=== PATIENT | male | born 1945 | race Caucasian/White ===

== ENCOUNTER 2017-06-13 08:11 | Inpatient (IN) | payer MEDICARE, OTHER ==
[2017-06-13] MEDS: ALBUTEROL 0.5% (NEB) 2.5 MG/0.5 ML AMP INH (08:44)
[2017-06-13] MEDS: METHYLPREDNISOLONE 125 MG INJ IV (08:49)
[2017-06-13 09:05] LABS: ADD MAN DIFF? NO
[2017-06-13 09:09] LABS: WHITE BLOOD COUNT 17.3 10^3/ul (4.8-10.8)
[2017-06-13 09:09] LABS: BASOPHILS % 0.2 % (0.0-2.0); HEMATOCRIT 39.5 % (42.0-52.0); HEMOGLOBIN 12.3 g/dl (14.0-18.0); LYMPHOCYTES # 0.7 10^3/ul (0.8-2.9); LYMPHOCYTES % 4.2 % (15.0-51.0); MEAN CORPUSCULAR HEMOGLOBIN 31.1 pg (29.0-33.0); MEAN CORPUSCULAR HGB CONC 31.1 g/dl (32.0-37.0); MEAN CORPUSCULAR VOLUME 99.7 fl (82.0-101.0); MONOCYTE # 1.4 10^3/ul (0.3-0.9); MONOCYTES % 8.3 % (0.0-11.0); NEUTROPHILS % 86.7 % (39.0-77.0); PLATELET COUNT 208 10^3/UL (140-415); RED BLOOD COUNT 3.96 10^6/ul (4.70-6.10); RED CELL DISTRIBUTION WIDTH 14.3 % (11.5-14.5)
[2017-06-13 09:27] LABS: ALANINE AMINOTRANSFERASE 23 IU/L (13-69); ALBUMIN 3.8 g/dl (3.3-4.9); ALBUMIN/GLOBULIN RATIO 0.88; ALKALINE PHOSPHATASE 102 IU/L (42-121); ANION GAP 16 (8-16); ASPARTATE AMINO TRANSFERASE 24 IU/L (15-46); BILIRUBIN,INDIRECT 0.3 mg/dl (0-1.1); BILIRUBIN,TOTAL 0.3 mg/dl (0.2-1.3); BLOOD UREA NITROGEN 65 mg/dl (7-20); CARBON DIOXIDE 32 mmol/L (21-31); CHLORIDE 103 mmol/L (97-110); CREATININE 2.36 mg/dl (0.61-1.24); GLUCOSE 184 mg/dl (70-220); POTASSIUM 5.1 mmol/L (3.5-5.1); SODIUM 146 mmol/L (135-144); TOTAL PROTEIN 8.1 g/dl (6.1-8.1)
[2017-06-13 09:39] LABS: TROPONIN-I 0.025 ng/ml (0.00-0.12)
[2017-06-13 10:04] LABS: B-TYPE NATRIURETIC PEPTIDE 648 PG/ML (0-125)
[2017-06-13] MEDS: DILTIAZEM 50 MG INJ IV (11:00)
[2017-06-13 11:57] LABS: Allen Test ACCEPTAB; Arterial Base Excess -0.7 mmol/L (-3.0-3); Arterial Blood Gas Oxygen Sat 83.8 mmHG (95.0-100.0); Arterial COHb 0.9 % (0.0-3.0); Arterial Fraction of Oxyhgb 82.7 % (93.0-99.0); Arterial HCO3 32.2 mmol/L (22.0-26.0); Arterial MetHb 0.4 % (0.0-1.5); Arterial Total Hemglobin 12.9 g/dl (12.0-18.0); Arterial pCO2 109.6 mmhg (35-45); MODE ROOM AIR; Site Left Radial
[2017-06-13] MEDS: SODIUM CHLORIDE 0.9% 1L BAG IV* (11:57)
[2017-06-13] MEDS: CEFEPIME 1GM/50 ML (PMX) 50 ML IVPB (11:58)
[2017-06-13 12:22] LABS: LACTIC ACID 0.7 mmol/L (0.5-2.0)
[2017-06-13] MEDS: VANCOMYCIN 1 GM (PMX) 250 ML IVPB (12:37)
[2017-06-13] MEDS ORDERED: ACETAMINOPHEN 325 MG TAB PO ×2 (13:00→13:30)
[2017-06-13] MEDS ORDERED: ONDANSETRON 4 MG INJ IV ×2 (13:00→13:30)
[2017-06-13 13:23] LABS: LACTIC ACID 1.8 mmol/L (0.5-2.0)
[2017-06-13] MEDS ORDERED: VANCOMYCIN IV PER PHARMACY XX (13:30)
[2017-06-13] MEDS ORDERED: BISACODYL (EC) 5 MG TAB PO (13:30)
[2017-06-13] MEDS ORDERED: MAGNESIUM HYDROXIDE 30ML CUP PO (13:30)
[2017-06-13] MEDS ORDERED: NACL 0.9% 3 ML SYG IV (13:30)
[2017-06-13] MEDS: LEVALBUTEROL (NEB) 1.25 MG/0.5 ML AMP HHN ×2 (13:33→19:46)
[2017-06-13] MEDS: IPRATROPIUM (NEB) 0.5 MG/2.5 ML AMP HHN ×2 (13:33→19:46)
[2017-06-13] MEDS: PIPER-TAZO 3.375 GM IV (PMX) 100 ML IVPB ×2 (14:37→18:22)
[2017-06-13] MEDS: SOD CHLORIDE 0.9% 1,000 ML IV (14:37)
[2017-06-13] MEDS: METHYLPREDNISOLONE 40 MG INJ IV ×2 (15:05→21:08)
[2017-06-13] MEDS: HEPARIN 5,000 UNIT/0.5 ML VIAL SC ×2 (15:07→22:21)
[2017-06-13 15:41] LABS: Allen Test ACCEPTAB; Arterial Blood Gas Oxygen Sat 84.8 mmHG (95.0-100.0); Arterial COHb 0.5 % (0.0-3.0); Arterial HCO3 27.6 mmol/L (22.0-26.0); Arterial MetHb 0.4 % (0.0-1.5); Arterial Total Hemglobin 12.3 g/dl (12.0-18.0); Arterial pCO2 73.7 mmhg (35-45); Blood Gas IEPAP 20/5; Blood Gas PS 15; MODE MASK - BIPAP; Site Right Radial
[2017-06-13] MEDS: DOCUSATE SODIUM 100 MG CAP PO (16:51)
[2017-06-13] MEDS: VANCOMYCIN 750 MG in DEXTROSE 5% 150 ML IVPB (17:37)
[2017-06-13 18:54] LABS: LACTIC ACID 1.2 mmol/L (0.5-2.0)
[2017-06-13 19:20] LABS: TROPONIN-I 0.016 ng/ml (0.00-0.12)
[2017-06-13] MEDS: BUDESONIDE (NEB) 0.5MG/2ML AMP HHN (19:46)
[2017-06-13] MEDS: ATORVASTATIN 80 MG TAB PO (21:00)
[2017-06-13] MEDS: TAMSULOSIN (SR) 0.4 MG CAP PO (21:09)
[2017-06-13] MEDS: OLANZAPINE (ODT) 5 MG TAB PO (21:10)
[2017-06-13] MEDS: HYDROCODONE/APAP (5/325) TAB PO (21:28)
[2017-06-13] MEDS ORDERED: LORAZEPAM 2 MG INJ (22:53)
[2017-06-13] MEDS: LORAZEPAM 2 MG INJ IV (22:55)
[2017-06-14] MEDS: PIPER-TAZO 3.375 GM IV (PMX) 100 ML IVPB ×4 (00:55→17:02)
[2017-06-14 01:01] LABS: TROPONIN-I 0.021 ng/ml (0.00-0.12)
[2017-06-14] MEDS: LEVALBUTEROL (NEB) 1.25 MG/0.5 ML AMP HHN ×3 (01:12→19:15)
[2017-06-14] MEDS: DOCUSATE SODIUM 100 MG CAP PO ×2 (01:28→16:08)
[2017-06-14] MEDS: LORAZEPAM 2 MG INJ IV (05:42)
[2017-06-14] MEDS: HEPARIN 5,000 UNIT/0.5 ML VIAL SC ×3 (05:53→22:40)
[2017-06-14 06:10] LABS: ADD MAN DIFF? NO
[2017-06-14 06:21] LABS: WHITE BLOOD COUNT 18.6 10^3/ul (4.8-10.8)
[2017-06-14 06:21] LABS: ABNORMAL IP MESSAGE 1; BASOPHILS % 0.2 % (0.0-2.0); HEMATOCRIT 33.8 % (42.0-52.0); HEMOGLOBIN 10.7 g/dl (14.0-18.0); LYMPHOCYTES # 0.3 10^3/ul (0.8-2.9); LYMPHOCYTES % 1.6 % (15.0-51.0); MEAN CORPUSCULAR HGB CONC 31.7 g/dl (32.0-37.0); MEAN PLATELET VOLUME 10.1 fl (7.4-10.4); MONOCYTE # 0.9 10^3/ul (0.3-0.9); MONOCYTES % 4.7 % (0.0-11.0); NEUTROPHIL # 17.3 10^3/ul (1.6-7.5); NEUTROPHILS % 92.9 % (39.0-77.0); PLATELET COUNT 186 10^3/UL (140-415); POSITIVE DIFF @See below; RED BLOOD COUNT 3.45 10^6/ul (4.70-6.10); RED CELL DISTRIBUTION WIDTH 14.3 % (11.5-14.5)
[2017-06-14 06:53] LABS: ALANINE AMINOTRANSFERASE 17 IU/L (13-69); ALBUMIN 2.8 g/dl (3.3-4.9); ALBUMIN/GLOBULIN RATIO 0.82; ALKALINE PHOSPHATASE 78 IU/L (42-121); ANION GAP 15 (8-16); ASPARTATE AMINO TRANSFERASE 29 IU/L (15-46); BILIRUBIN,INDIRECT 0.2 mg/dl (0-1.1); BILIRUBIN,TOTAL 0.2 mg/dl (0.2-1.3); BLOOD UREA NITROGEN 64 mg/dl (7-20); CALCIUM 8.5 mg/dl (8.4-10.2); CARBON DIOXIDE 28 mmol/L (21-31); CHLORIDE 114 mmol/L (97-110); CREATININE 1.98 mg/dl (0.61-1.24); GLUCOSE 182 mg/dl (70-220); MAGNESIUM 2.4 mg/dl (1.7-2.5); POTASSIUM 4.5 mmol/L (3.5-5.1); SODIUM 152 mmol/L (135-144); TOTAL PROTEIN 6.2 g/dl (6.1-8.1)
[2017-06-14] MEDS: PANTOPRAZOLE 40 MG INJ IV (07:32)
[2017-06-14 08:03] LABS: AADO2 Arterial 106.6 mmHg (7.0-24.0); Allen Test ACCEPTAB; Arterial Base Excess -1.7 mmol/L (-3.0-3); Arterial Blood Gas Oxygen Sat 93.5 mmHG (95.0-100.0); Arterial COHb 0.1 % (0.0-3.0); Arterial Fraction of Oxyhgb 93.1 % (93.0-99.0); Arterial HCO3 25.9 mmol/L (22.0-26.0); Arterial MetHb 0.3 % (0.0-1.5); Arterial Total Hemglobin 12.1 g/dl (12.0-18.0); Arterial pCO2 56.7 mmhg (35-45); Blood Gas IEPAP 20/5; Blood Gas PS 15; MODE MASK - BIPAP; Site Left Radial
[2017-06-14] MEDS: IPRATROPIUM (NEB) 0.5 MG/2.5 ML AMP HHN ×2 (08:56→19:15)
[2017-06-14] MEDS: FINASTERIDE 5 MG TAB PO (09:00)
[2017-06-14] MEDS: PERPHENAZINE 4 MG TAB PO (09:00)
[2017-06-14] MEDS: ASPIRIN (EC) 81 MG TAB PO (09:00)
[2017-06-14] MEDS: ENALAPRIL 20 MG TAB PO (09:00)
[2017-06-14] MEDS: NIFEdipine (XL) 30 MG TAB PO (09:00)
[2017-06-14] MEDS: METHYLPREDNISOLONE 40 MG INJ IV ×2 (09:53→22:19)
[2017-06-14] MEDS ORDERED: LABETALOL HCL 20MG INJ IV (13:00)
[2017-06-14] MEDS: DEXTROSE 5% 1,000 ML IV (14:05)
[2017-06-14] MEDS: VANCOMYCIN 1 GM in 250 ML IVPB (17:36)
[2017-06-14] MEDS: BUDESONIDE (NEB) 0.5MG/2ML AMP HHN (19:15)
[2017-06-14] MEDS: ATORVASTATIN 80 MG TAB PO (22:19)
[2017-06-14] MEDS: OLANZAPINE (ODT) 5 MG TAB PO (22:19)
[2017-06-14] MEDS: TAMSULOSIN (SR) 0.4 MG CAP PO (22:19)
[2017-06-15] MEDS: PIPER-TAZO 3.375 GM IV (PMX) 100 ML IVPB ×4 (00:43→17:18)
[2017-06-15] MEDS: DOCUSATE SODIUM 100 MG CAP PO ×2 (00:44→13:43)
[2017-06-15] MEDS: morphine 2 MG INJ IV (00:49)
[2017-06-15] MEDS ORDERED: VANCOMYCIN 1.5 GM in SOD CHLORIDE 0.9% 250 ML IVPB (01:00)
[2017-06-15] MEDS: LEVALBUTEROL (NEB) 1.25 MG/0.5 ML AMP HHN ×4 (02:35→20:17)
[2017-06-15] MEDS: HALOPERIDOL 5 MG INJ IM (03:47)
[2017-06-15 05:26] LABS: ADD MAN DIFF? NO
[2017-06-15 05:30] LABS: WHITE BLOOD COUNT 20.5 10^3/ul (4.8-10.8)
[2017-06-15 05:30] LABS: ABNORMAL IP MESSAGE 1; BASOPHILS % 0.2 % (0.0-2.0); HEMATOCRIT 35.6 % (42.0-52.0); HEMOGLOBIN 11.1 g/dl (14.0-18.0); LYMPHOCYTES # 0.4 10^3/ul (0.8-2.9); LYMPHOCYTES % 1.8 % (15.0-51.0); MEAN CORPUSCULAR HEMOGLOBIN 30.8 pg (29.0-33.0); MEAN CORPUSCULAR HGB CONC 31.2 g/dl (32.0-37.0); MEAN CORPUSCULAR VOLUME 98.9 fl (82.0-101.0); MEAN PLATELET VOLUME 10.7 fl (7.4-10.4); MONOCYTE # 0.8 10^3/ul (0.3-0.9); MONOCYTES % 3.7 % (0.0-11.0); NEUTROPHIL # 19.2 10^3/ul (1.6-7.5); NEUTROPHILS % 93.4 % (39.0-77.0); PLATELET COUNT 204 10^3/UL (140-415); POSITIVE DIFF @See below; RED CELL DISTRIBUTION WIDTH 14.7 % (11.5-14.5)
[2017-06-15] MEDS: PANTOPRAZOLE 40 MG INJ IV (05:43)
[2017-06-15] MEDS: HEPARIN 5,000 UNIT/0.5 ML VIAL SC ×3 (05:44→20:45)
[2017-06-15 05:52] LABS: ANION GAP 10 (8-16); BLOOD UREA NITROGEN 60 mg/dl (7-20); CALCIUM 8.9 mg/dl (8.4-10.2); CARBON DIOXIDE 30 mmol/L (21-31); CHLORIDE 118 mmol/L (97-110); CREATININE 1.54 mg/dl (0.61-1.24); GLUCOSE 165 mg/dl (70-220); MAGNESIUM 2.9 mg/dl (1.7-2.5); PHOSPHORUS 2.7 mg/dl (2.5-4.9); POTASSIUM 4.7 mmol/L (3.5-5.1); SODIUM 153 mmol/L (135-144)
[2017-06-15 06:57] LABS: AADO2 Arterial 125.7 mmHg (7.0-24.0); Allen Test ACCEPTAB; Arterial Blood Gas Oxygen Sat 89.2 mmHG (95.0-100.0); Arterial COHb 0.3 % (0.0-3.0); Arterial Fraction of Oxyhgb 88.7 % (93.0-99.0); Arterial HCO3 27.4 mmol/L (22.0-26.0); Arterial MetHb 0.3 % (0.0-1.5); Arterial Total Hemglobin 12.2 g/dl (12.0-18.0); Arterial pCO2 45.6 mmhg (35-45); MODE NASAL CANNULA; Site Right Radial
[2017-06-15] MEDS: IPRATROPIUM (NEB) 0.5 MG/2.5 ML AMP HHN ×3 (07:31→20:17)
[2017-06-15] MEDS: BUDESONIDE (NEB) 0.5MG/2ML AMP HHN ×2 (07:38→20:17)
[2017-06-15] MEDS: PERPHENAZINE 4 MG TAB PO (09:00)
[2017-06-15] MEDS: METHYLPREDNISOLONE 40 MG INJ IV ×2 (10:20→20:49)
[2017-06-15] MEDS: FINASTERIDE 5 MG TAB PO (10:21)
[2017-06-15] MEDS: ASPIRIN (EC) 81 MG TAB PO (10:21)
[2017-06-15] MEDS: NIFEdipine (XL) 30 MG TAB PO (10:21)
[2017-06-15] MEDS: ENALAPRIL 20 MG TAB PO (10:22)
[2017-06-15] MEDS: OLANZAPINE (ODT) 5 MG TAB PO ×2 (10:22→20:48)
[2017-06-15] MEDS: DEXTROSE 5% 1,000 ML IV ×2 (11:32→13:47)
[2017-06-15] MEDS: HYDROCODONE/APAP (5/325) TAB PO (15:45)
[2017-06-15] MEDS: VANCOMYCIN 1 GM in 250 ML IVPB (17:53)
[2017-06-15] MEDS: ATORVASTATIN 80 MG TAB PO (20:49)
[2017-06-15] MEDS: TAMSULOSIN (SR) 0.4 MG CAP PO (20:49)
[2017-06-16] MEDS: DOCUSATE SODIUM 100 MG CAP PO ×2 (00:35→13:33)
[2017-06-16] MEDS: PIPER-TAZO 3.375 GM IV (PMX) 100 ML IVPB ×2 (00:35→06:26)
[2017-06-16] MEDS: LEVALBUTEROL (NEB) 1.25 MG/0.5 ML AMP HHN ×4 (02:00→20:25)
[2017-06-16 05:37] LABS: ADD MAN DIFF? NO
[2017-06-16 05:41] LABS: ABNORMAL IP MESSAGE 1; BASOPHILS % 0.1 % (0.0-2.0); HEMATOCRIT 35.2 % (42.0-52.0); HEMOGLOBIN 10.9 g/dl (14.0-18.0); LYMPHOCYTES # 0.6 10^3/ul (0.8-2.9); MEAN CORPUSCULAR HEMOGLOBIN 30.3 pg (29.0-33.0); MEAN CORPUSCULAR VOLUME 97.8 fl (82.0-101.0); MEAN PLATELET VOLUME 10.2 fl (7.4-10.4); MONOCYTE # 0.8 10^3/ul (0.3-0.9); MONOCYTES % 4.5 % (0.0-11.0); NEUTROPHIL # 16.8 10^3/ul (1.6-7.5); NEUTROPHILS % 91.3 % (39.0-77.0); PLATELET COUNT 240 10^3/UL (140-415); POSITIVE DIFF @See below; RED CELL DISTRIBUTION WIDTH 14.9 % (11.5-14.5)
[2017-06-16 05:41] LABS: WHITE BLOOD COUNT 18.4 10^3/ul (4.8-10.8)
[2017-06-16 06:01] LABS: ANION GAP 13 (8-16); BLOOD UREA NITROGEN 49 mg/dl (7-20); CARBON DIOXIDE 31 mmol/L (21-31); CHLORIDE 115 mmol/L (97-110); CREATININE 1.49 mg/dl (0.61-1.24); GLUCOSE 182 mg/dl (70-220); MAGNESIUM 2.6 mg/dl (1.7-2.5); PHOSPHORUS 3.2 mg/dl (2.5-4.9); POTASSIUM 4.8 mmol/L (3.5-5.1); SODIUM 154 mmol/L (135-144)
[2017-06-16] MEDS: PANTOPRAZOLE 40 MG INJ IV (06:25)
[2017-06-16] MEDS: HEPARIN 5,000 UNIT/0.5 ML VIAL SC ×3 (06:25→21:19)
[2017-06-16] MEDS: IPRATROPIUM (NEB) 0.5 MG/2.5 ML AMP HHN ×3 (08:00→20:27)
[2017-06-16] MEDS: BUDESONIDE (NEB) 0.5MG/2ML AMP HHN ×2 (08:31→20:26)
[2017-06-16] MEDS: ENALAPRIL 20 MG TAB PO (08:59)
[2017-06-16] MEDS: METHYLPREDNISOLONE 40 MG INJ IV ×2 (08:59→21:03)
[2017-06-16] MEDS: NIFEdipine (XL) 30 MG TAB PO (08:59)
[2017-06-16] MEDS: FINASTERIDE 5 MG TAB PO (08:59)
[2017-06-16] MEDS: ASPIRIN (EC) 81 MG TAB PO (08:59)
[2017-06-16] MEDS: PERPHENAZINE 2 MG TAB PO (09:00)
[2017-06-16] MEDS: LEVOFLOXACIN 750MG/D5W (PMX) 150 ML IVPB (13:26)
[2017-06-16] MEDS: DEXTROSE 5% 1,000 ML IV (13:27)
[2017-06-16] MEDS: ATORVASTATIN 80 MG TAB PO (21:03)
[2017-06-16] MEDS: OLANZAPINE (ODT) 5 MG TAB PO (21:04)
[2017-06-16] MEDS: TAMSULOSIN (SR) 0.4 MG CAP PO (21:05)
[2017-06-16] MEDS: SOD CHLORIDE 0.9% 500 ML IV (23:32)
[2017-06-17] MEDS: DEXTROSE 5% 1,000 ML IV ×2 (01:21→18:53)
[2017-06-17] MEDS: LEVALBUTEROL (NEB) 1.25 MG/0.5 ML AMP HHN ×4 (01:36→20:29)
[2017-06-17] MEDS: DOCUSATE SODIUM 100 MG CAP PO ×2 (01:55→14:22)
[2017-06-17] MEDS: PANTOPRAZOLE 40 MG INJ IV (06:16)
[2017-06-17 06:29] LABS: ADD MAN DIFF? NO
[2017-06-17 06:32] LABS: WHITE BLOOD COUNT 13.1 10^3/ul (4.8-10.8)
[2017-06-17 06:32] LABS: BASOPHILS % 0.2 % (0.0-2.0); HEMATOCRIT 36.7 % (42.0-52.0); HEMOGLOBIN 11.9 g/dl (14.0-18.0); LYMPHOCYTES # 0.8 10^3/ul (0.8-2.9); LYMPHOCYTES % 5.7 % (15.0-51.0); MEAN CORPUSCULAR HGB CONC 32.4 g/dl (32.0-37.0); MEAN CORPUSCULAR VOLUME 95.6 fl (82.0-101.0); MEAN PLATELET VOLUME 10.3 fl (7.4-10.4); MONOCYTE # 0.8 10^3/ul (0.3-0.9); NEUTROPHIL # 11.4 10^3/ul (1.6-7.5); PLATELET COUNT 265 10^3/UL (140-415); RED BLOOD COUNT 3.84 10^6/ul (4.70-6.10); RED CELL DISTRIBUTION WIDTH 14.4 % (11.5-14.5)
[2017-06-17 06:57] LABS: ANION GAP 13 (8-16); BLOOD UREA NITROGEN 36 mg/dl (7-20); CALCIUM 8.8 mg/dl (8.4-10.2); CARBON DIOXIDE 34 mmol/L (21-31); CHLORIDE 107 mmol/L (97-110); CREATININE 1.15 mg/dl (0.61-1.24); GLUCOSE 175 mg/dl (70-220); MAGNESIUM 2.1 mg/dl (1.7-2.5); PHOSPHORUS 3.1 mg/dl (2.5-4.9); POTASSIUM 4.5 mmol/L (3.5-5.1); SODIUM 149 mmol/L (135-144)
[2017-06-17] MEDS: IPRATROPIUM (NEB) 0.5 MG/2.5 ML AMP HHN ×3 (08:02→20:29)
[2017-06-17] MEDS: BUDESONIDE (NEB) 0.5MG/2ML AMP HHN ×2 (08:13→20:29)
[2017-06-17] MEDS: METHYLPREDNISOLONE 40 MG INJ IV (08:16)
[2017-06-17] MEDS: ASPIRIN (EC) 81 MG TAB PO (08:20)
[2017-06-17] MEDS: PERPHENAZINE 2 MG TAB PO (08:21)
[2017-06-17] MEDS: ENALAPRIL 20 MG TAB PO (08:21)
[2017-06-17] MEDS: FINASTERIDE 5 MG TAB PO (08:21)
[2017-06-17] MEDS: NIFEdipine (XL) 30 MG TAB PO (08:21)
[2017-06-17] MEDS: predniSONE 20 MG TAB PO (10:43)
[2017-06-17] MEDS: LEVOFLOXACIN 750MG/D5W (PMX) 150 ML IVPB (10:46)
[2017-06-17] MEDS: OLANZAPINE (ODT) 5 MG TAB PO (20:59)
[2017-06-17] MEDS: ATORVASTATIN 80 MG TAB PO (20:59)
[2017-06-17] MEDS: TAMSULOSIN (SR) 0.4 MG CAP PO (20:59)
[2017-06-18] MEDS: DOCUSATE SODIUM 100 MG CAP PO ×2 (01:21→12:49)
[2017-06-18] MEDS: LEVALBUTEROL (NEB) 1.25 MG/0.5 ML AMP HHN ×3 (02:00→14:54)
[2017-06-18 06:04] LABS: ADD MAN DIFF? NO
[2017-06-18] MEDS: LEVOFLOXACIN 750 MG TABLET PO (06:21)
[2017-06-18] MEDS: PANTOPRAZOLE 40 MG INJ IV (06:21)
[2017-06-18 06:23] LABS: BASOPHILS % 0.2 % (0.0-2.0); EOSINOPHILS % 0.2 % (0.0-7.0); HEMATOCRIT 38.4 % (42.0-52.0); HEMOGLOBIN 12.6 g/dl (14.0-18.0); LYMPHOCYTES # 1.3 10^3/ul (0.8-2.9); MEAN CORPUSCULAR HEMOGLOBIN 30.7 pg (29.0-33.0); MEAN CORPUSCULAR HGB CONC 32.8 g/dl (32.0-37.0); MEAN CORPUSCULAR VOLUME 93.7 fl (82.0-101.0); MEAN PLATELET VOLUME 10.2 fl (7.4-10.4); MONOCYTE # 0.7 10^3/ul (0.3-0.9); MONOCYTES % 6.1 % (0.0-11.0); NEUTROPHIL # 9.5 10^3/ul (1.6-7.5); NEUTROPHILS % 81.1 % (39.0-77.0); PLATELET COUNT 275 10^3/UL (140-415); RED CELL DISTRIBUTION WIDTH 14.1 % (11.5-14.5)
[2017-06-18 06:23] LABS: WHITE BLOOD COUNT 11.8 10^3/ul (4.8-10.8)
[2017-06-18 06:41] LABS: ANION GAP 9 (8-16); BLOOD UREA NITROGEN 35 mg/dl (7-20); CARBON DIOXIDE 37 mmol/L (21-31); CHLORIDE 103 mmol/L (97-110); CREATININE 1.17 mg/dl (0.61-1.24); GLUCOSE 141 mg/dl (70-220); PHOSPHORUS 2.8 mg/dl (2.5-4.9); POTASSIUM 4.1 mmol/L (3.5-5.1); SODIUM 145 mmol/L (135-144)
[2017-06-18] MEDS: IPRATROPIUM (NEB) 0.5 MG/2.5 ML AMP HHN ×2 (08:16→14:54)
[2017-06-18] MEDS: BUDESONIDE (NEB) 0.5MG/2ML AMP HHN (08:27)
[2017-06-18] MEDS: predniSONE 10 MG TAB PO (08:58)
[2017-06-18] MEDS: ASPIRIN (EC) 81 MG TAB PO (08:58)
[2017-06-18] MEDS: FINASTERIDE 5 MG TAB PO (08:58)
[2017-06-18] MEDS: NIFEdipine (XL) 30 MG TAB PO (08:58)
[2017-06-18] MEDS: ENALAPRIL 20 MG TAB PO (08:59)
[2017-06-18] MEDS: PERPHENAZINE 2 MG TAB PO (08:59)
[2017-06-18] MEDS: DEXTROSE 5% 1,000 ML IV (12:49)
== END 2017-06-18 20:17 | DRG 871 ==
LOC: MS2 06-16 01:08 → ICU 12:58 → MS2 06-15 12:40 → E/R 08:11 → MS2 06-16 23:49
PROC: 5A09457 Assistance with Respiratory Ventilation, 24-96 Consecutive Hours, Continuous Positive Airway Pressure (ICD-10-PCS; principal; 2017-06-13)
DX: A41.9 Sepsis, unspecified organism (principal); J18.9 Pneumonia, unspecified organism; J96.01 Acute respiratory failure with hypoxia; J96.02 Acute respiratory failure with hypercapnia; J44.1 Chronic obstructive pulmonary disease with (acute) exacerbation; E87.2 Acidosis; N17.9 Acute kidney failure, unspecified; I13.0 Hypertensive heart and chronic kidney disease with heart failure and stage 1 through stage 4 chronic kidney disease, or unspecified chronic kidney disease; I50.30 Unspecified diastolic (congestive) heart failure; E87.0 Hyperosmolality and hypernatremia; N18.9 Chronic kidney disease, unspecified; F20.9 Schizophrenia, unspecified; N40.0 Benign prostatic hyperplasia without lower urinary tract symptoms
CPT/HCPCS: 36415; 36600; 70450; 71045; 80048; 80053; 82803; 83605; 83735; 83880; 84100; 84484; 85025; 87040; 87081; 93005; 93306; 94640; 94644; 94660; 94664; 96365; 96366; 96372; 96375; 96376; 99291-25